=== PATIENT | male | born 1950 | race Caucasian/White ===

== ENCOUNTER 2018-06-06 08:51 | Day surgery (SDC) | payer MEDICARE ==
[2018-05-26 09:48] VITALS: BMI 27.6
[2018-06-06 09:29] VITALS: O2SAT 98
[2018-06-06] MEDS ORDERED: Propofol 10 mg/ml Inj (20 ML) ONE (10:07)
[2018-06-06] MEDS ORDERED: Bupivacaine 0.5% Inj(30mL) ONE (10:07)
[2018-06-06] MEDS ORDERED: Midazolam 2 MG/2 ML VIAL ONE (10:07)
[2018-06-06] MEDS ORDERED: Lidocaine 1% Inj (20ml) ONE (10:07)
[2018-06-06] MEDS ORDERED: Lidocaine 1% w Epi 1:100,000 Inj ONE (10:07)
[2018-06-06] MEDS ORDERED: Succinylcholine 200 mg/10 ml Inj IV ONE (10:09)
[2018-06-06] MEDS ORDERED: Rocuronium 10 mg/ml (5 ml) ONE (10:39)
[2018-06-06] MEDS ORDERED: ePHEDrine 50 mg/ml Inj ONE (10:44)
[2018-06-06] MEDS ORDERED: Bupivacaine 0.5% Inj(30mL) IJ ONE ×2 (10:45)
[2018-06-06] MEDS ORDERED: Neostigmine Methylsulfate 3mg/3ml Syringe IV ONE (10:55)
[2018-06-06] MEDS ORDERED: Desflurane Inhalation Anesthetic Liq (240 ml) ONE (10:56)
[2018-06-06] MEDS ORDERED: HYDROmorphone 0.5 mg/0.5 ml ISec IVP PRN (11:29)
--- NOTE | 2018-06-06 11:29 | PCM.SURG1 ---
Surgeon's Initial Post Op Note - Surgeon's Notes Surgeon: Dr. Conway Route Agent: Ewelina Laureano, PGY2 Type of Anesthesia: General Endo Pre-Operative Diagnosis: right anterior neck mass Operative Findings: large right fatty neck mass deep to the sternocleidomastoid extending to pre-tracheal space. No nervous structures identified in dissection. hemostasis adequately obtained by electrocautery Post-Operative Diagnosis: right anterior deep neck mass Operation Performed: excision of deep right anterior neck mass Specimen/Specimens Removed: right anterior neck mass Estimated Blood Loss: EBL {In ML}: 1 Blood Products Given: N/A Drains Used: Moreno (red-rubber catheter, not moreno) Post-Op Condition: Fair Date of Surgery/Procedure: 06/06/18 Time of Surgery/Procedure: 10:15
[2018-06-06] MEDS ORDERED: Lactated Ringer's 1,000 ML IV SCH (11:30)
[2018-06-06 12:39] VITALS: TEMP 97.4
[2018-06-06 13:14] VITALS: BP 136/80; PULSE 62; RESP 20
--- NOTE | 2018-06-07 11:08 | OP ---
PROCEDURE DATE: 06/06/2018 SURGEON: Shen Conway MD. HARBORMASTER: Ewelina Laureano DO, PGY-3. WELL LOGGER: Bibi Rodriguez MD. ANESTHESIA: General endotracheal - Marcaine 0.5 - 14 mL. PREOPERATIVE DIAGNOSIS: Right neck tumor (5 cm). 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 PROCEDURE: 1. Exploration of the right neck with removal of the right neck tumor (anterior triangle). 2. Intermediate layer closure, 7 cm. OPERATIVE INDICATION: The patient is a 68-year-old male with an enlarging mass over the past several years that is becoming symptomatic and discomforting. It is now approximately 5 cm in size. It is located in the anterior triangle of his neck and appears to be mobile and fairly consistent with lipoma, but the change recently cannot be ruled out as a branchial cleft cyst. Risks, benefits, the alternatives and their anticipated outcomes were discussed with the patient and he signs the informed consent. OPERATIVE NOTE: The patient was brought to the operating room from the same-day holding area. He is identified by his wrist band, undergoes time-out procedure and is then placed in the operating room in a supine position on the operating table and undergoes the induction of general anesthesia with the insertion of an endotracheal tube. The neck is prepped with Hibiclens, chlorhexidine preparation and the patient is then aseptically draped. A transverse incision is made over the lesion is palpable and previously marked in the same-day holding area. Sharp dissection is carried on through to the subcutaneous tissues and hemostasis is contained with electrocoagulation cautery. The skin has been infiltrated with the bupivacaine with a blanching wheal and this reduces blood loss as well. The incision is elevated on Allis clamps and dissection with cautery is carried on down through the subcutaneous tissue, the investing platysma and down to the sternocleidomastoid, which is transected with a cautery scalpel partially and exposing the lesion below. 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 Care is maintained to avoid injury to any neurologic structures inside and the lesion is removed and submitted to pathology in formalin. The wound is now lavaged with copious quantities of normal saline solution and the return is noted to be clear and the wound is approximated with 3-0 interrupted polyester sutures and the skin with the AutoSuture skin stapler. A #10-[place] red rubber catheter is inserted into the incision into the depths of the wound for wicking and removal of accumulating fluids and stapled to a 4 x 4 dressing and will be removed on the first postoperative day. Dry dressing is placed over this covered with tape and the patient awakened, extubated and transported to the recovery room in a satisfactory condition. Sponge, instrument and suture count were verified as correct at the end of the procedure. Estimated blood loss during this procedure was less than 5 mL of blood. Shen Conway MD
== END 2018-06-06 15:00 | disposition home or self-care (01) ==
LOC: SDS 08:51
PROVIDERS: ATTEND Surgery
DX: D17.0 Benign lipomatous neoplasm of skin and subcutaneous tissue of head, face and neck (principal)
CPT/HCPCS: 11426; 12042; 36415; 86850; 86900; 88307; J0330; J0690; J1100; J1170; J2001; J2250; J2405; J2704; J2710; J3010; J7120 ×2